=== PATIENT | female | born 1995 ===

== ENCOUNTER 2019-11-03 11:09 | Outpatient (REF) | payer BC, SELFPAY ==
[2019-11-03 21:16] LABS: HCT 39.7 % (36.0-46.0); HGB 13.2 g/dL (12.0-15.5); Mean Corp. HGB Concentration 33.2 g/dL (32.0-36.0); Mean Corpuscular Hemoglobin 29.9 pg (27.0-33.0); Mean Corpuscular Volume 89.8 fL (80-95); Mean Platelet Volume 11.2 fL (8.0-11.0); Platelet Count 252 x1000/uL (130-400); RBC 4.42 m/cumm (4.00-5.20); RBC Distribution Width 11.8 % (11.7-14.6); White Blood Cell Count 5.92 k/cumm (4.4-10.8)
[2019-11-03 21:50] LABS: ALT 21 U/L (14-59); AST 13 U/L (15-37); Albumin 4.5 g/dL (3.4-5.0); Alkaline Phosphatase 28 U/L (46-116); Anion Gap 11.3 mmol/L (3-11); BUN 9 mg/dL (7-18); Bilirubin, Total 0.9 mg/dL (0.2-1.0); CO2 25.7 mmol/L (21.0-32.0); CREATININE 0.71 mg/dL (0.55-1.02); Calcium 9.1 mg/dL (8.5-10.1); Chloride 102 mmol/L (98-107); Glucose 85 mg/dL (74-106); Potassium 4.2 mmol/L (3.5-5.1); Sodium 139 mmol/L (136-145); Total Protein 7.3 g/dL (6.4-8.2)
[2019-11-03 21:54] LABS: Vitamin D 25 Total 34.3 ng/ml (30-100)
== END 2019-11-03 11:29 ==
LOC: NCHCN 11:09
PROVIDERS: Visit Provider Family Medicine
DX: R11.0 Nausea (principal); F32.9 Major depressive disorder, single episode, unspecified; F41.9 Anxiety disorder, unspecified
CPT/HCPCS: 80053; 82306; 85027; 84443